=== PATIENT | male | born 1995 | race Caucasian/White ===

== ENCOUNTER 2017-08-09 18:12 | Emergency (ER) | payer OTHER ==
[2017-08-09 18:14] VITALS: BP 184/80; PULSE 92; RESP 12; TEMP 98.2; O2SAT 99
[2017-08-09] MEDS ORDERED: ORPHENADRINE INJ 60 MG/2 ML AMP IM ONE (20:15)
[2017-08-09] MEDS ORDERED: MORPHINE SULFATE 8 MG/ML INJ IM ONE (20:15)
--- NOTE | 2017-08-09 20:23 | PD ---
HPI Chief Complaint: Back/ Neck Pain or Injury Time Seen by Provider: 20:06 Travel History International Travel<30 days: No Contact w/Intl Traveler<30days: No Traveled to known affect area: No History of Present Illness HPI 22-year-old white male presents to emergency Department with complaints of left lower back pain. Patient has a history of chronic lower back pain. He's been seen by a chiropractor now over the past 5 months. He works as an structural iron erector. He goes weekly to his chiropractor. He states that he knows increasing pain more than usual in his left lower back where he typically has a. He states that while at work it seemed to be much more intense and went to the chiropractor today for therapy. Patient states that while during his therapy the pain became much more severe which brought him to the ER today. He states that he has not had an x-ray of his back in the past. He denies any acute bowel or bladder changes. He states the pain is severe worse with movement. Some relief remaining still. He does not recall any direct trauma. [facility] Past Medical History Narrative Medical Chronic left lower back pain Tetanus Vaccination: < 5 Years Past Surgical History Surgical History: No Previous Surgery Social History Alcohol Use: Yes Tobacco Use: Yes Allergies-Medications (Allergen,Severity, Reaction): Coded Allergies: No Known Allergies (Unverified , 08/09/17) Reported Meds & Prescriptions Reported Meds & Active Scripts Active Flexeril (Cyclobenzaprine HCl) 10 Mg Tab 10 Mg PO TID Diclofenac Sodium DR (Diclofenac Sodium) 75 Mg Tabdr 75 Mg PO BID Hydrocodone-Acetaminophen 5-325 mg Tab 1 Tab PO Q6H PRN Review of Systems General / Constitutional: No: Fever Eyes: No: Visual changes HENT: No: Headaches Cardiovascular: No: Chest Pain or Discomfort Respiratory: No: Shortness of Breath Gastrointestinal: No: Abdominal Pain Genitourinary: No: Dysuria Musculoskeletal: Positive: Limited ROM, Cramping, Pain Skin: No Rash Neurologic: No: Weakness Psychiatric: No: Depression Endocrine: No: Polydipsia Hematologic/Lymphatic: No: Easy Bruising Physical Exam Narrative GENERAL: This is a well-nourished, well-developed patient, in no apparent distress. SKIN: No rashes, ecchymoses or lesions. Warm and dry. HEAD: Atraumatic. Normocephalic. EYES: PERRL, EOMI, no discharge or injection. No scleral icterus. EARS: Clear NOSE: Nasal turbinates appear normal. THROAT: Mucosa pink and moist. Airway patent. NECK: Trachea midline. supple, moves head freely. LUNGS: Clear to auscultation. CV: Regular in rhythm. ABDOMEN: Soft nontender. EXT: No clubbing cyanosis or edema. Back: No central bony tenderness to palpation of the dorsal and lumbar spine. Patient has left paralumbar tenderness and mild spasm. He moves slowly and appears to be in pain. No saddle anesthesia. He is able to heel and toe stand. He has decreased for flexion to 50. Data Data Last Documented VS Vital Signs Date Time Temp Pulse Resp B/P (MAP) Pulse Ox O2 Delivery O2 Flow Rate FiO2 08/09/17 18:14 98.2 92 12 184/80 (114) 99 Orders Orders Spine, Lumbar - Ltd (Ap & Lat) (08/09/17 20:13) Morphine Inj (Morphine Inj) (08/09/17 20:15) Orphenadrine Inj (Norflex Inj) (08/09/17 20:15) Ketorolac Inj (Toradol Inj) (08/09/17 20:45) Ed Discharge Order (08/09/17 20:43) [facility] Medical Decision Making Medical Screen Exam Complete: Yes Emergency Medical Condition: Yes Medical Record Reviewed: Yes Interpretation(s) Lumbar spine: Negative for acute bony injury. No subluxation. Differential Diagnosis MDM: High Differential diagnoses: Fracture, sprain, strain, HNP, nerve or vascular injury , epidural abscess, pilonidal cyst Narrative Course Patient given morphine 8 mg IM and Norflex 60 mg IM. X-ray of the lumbar spine is negative for fracture or subluxation. This is acute exacerbation of chronic back pain Patient is having some improvement of his pain. Diagnosis Primary Impression: Acute exacerbation of chronic low back pain Patient Instructions: Narcotic given in the ED, General Instructions Departure Forms: Tests/Procedures, Work Release Special Instructions: No work 5 days. Additional Instructions: Rest. Ice for the next 3 days followed by heat. Flexeril and Voltaren. Follow-up with a primary care doctor in 3-5 days. Return to the ER for emergencies. Med/Other Pt SpecificInfo: Prescription(s) given Scripts Cyclobenzaprine (Flexeril) 10 Mg Tab 10 MG PO TID for Muscle Spasm, #30 TAB 0 Refills Prov: Ankit Mckeon MD 08/09/[address] (Diclofenac Sodium DR) 75 Mg Tabdr 75 MG PO BID, #20 TAB 0 Refills Prov: Ankit Mckeon MD 08/09/17 Disposition: 01 DISCHARGE HOME Condition: Stable Ganesh Faustin Aug 09, 2017 20:23
[2017-08-09] MEDS ORDERED: HYDR-3516 PO (20:24)
[2017-08-09] MEDS ORDERED: DICL75TA PO (20:24)
[2017-08-09] MEDS ORDERED: CYCL10TA PO (20:24)
[2017-08-09] MEDS ORDERED: KETOROLAC TROMETHAMINE 60 MG/2 ML (IM) VIAL IM ONE (20:45)
--- NOTE | 2017-08-09 21:53 | RADRPT ---
EXAM DATE/TIME: 08/09/2017 20:27 [place] COMPARISON: No previous studies available for comparison. INDICATIONS : Low back pain, after chiropratic adjustment MEDICAL HISTORY : Chronic back pain SURGICAL HISTORY : None. ENCOUNTER: Initial ACUITY: 1 day PAIN SCORE: 10/10 LOCATION: Lumbar spine FINDINGS: Two view examination was performed. There are five non-rib bearing vertebral bodies. The vertebral bodies are in normal alignment without evidence of subluxation or scoliosis. The middle loss of disc height at L4-5. The pedicles are intact. Bony mineralization is normal. No fracture is identified. CONCLUSION: 1. Early degenerative disc disease at L4-5 with some minimal loss of disc height 2. Otherwise negative. No acute fracture or listhesis Drew Banda MD on August 09, 2017 at 21:50 Board Certified Radiologist. This report was verified electronically.
== END 2017-08-09 22:01 | disposition home or self-care (01) ==
LOC: NEPK 18:12
DX: M54.5 Low back pain (principal); G89.29 Other chronic pain; M51.36 Other intervertebral disc degeneration, lumbar region; Z72.0 Tobacco use
CPT/HCPCS: 72100; 96372; 99284; J1885; J2360